=== PATIENT | male | born 1980 | race Caucasian/White ===

== ENCOUNTER 2019-09-21 08:10 | Outpatient (CLI) | payer BC, SELFPAY ==
[2019-09-21 08:25] LABS: Basophils Absolute Auto 0.02 K/mm3 (0.00-0.10); Basophils Percent Auto 0.4 % (0.0-1.0); Eosinophils Absolute Auto 0.14 K/mm3 (0.02-0.50); Eosinophils Percent Auto 2.5 % (1.0-6.0); Hematocrit 47.8 % (40.0-54.0); Hemoglobin 16.4 g/dL (14.0-18.0); Immature Granulocyte Absolute 0.02 K/mm3 (0.00-0.00); Immature Granulocyte Percent A 0.4 % (0.0-0.0); Lymphocytes Absolute Auto 1.31 K/mm3 (1.10-4.50); Lymphocytes Percent Auto 23.8 % (18.0-42.0); Mean Corpuscular HGB Conc 34.3 g/dL (32.0-36.0); Mean Corpuscular Hemoglobin 30.8 pg (27.0-31.0); Mean Corpuscular Volume 89.7 fL (78.0-102.0); Mean Platelet Volume 8.8 fl (8.7-11.0); Monocytes Absolute Auto 0.63 K/mm3 (0.10-0.90); Monocytes Percent Auto 11.5 % (2.0-11.0); Neutrophils Absolute Auto 3.4 K/mm3 (1.7-7.2); Neutrophils Percent Auto 61.4 % (50.0-70.0); Platelet Count Result 226 K/mm3 (150-420); Red Blood Count 5.33 M/mm3 (4.70-6.10); Red Cell Distribution Width 12.2 % (11.6-14.4); White Blood Count 5.5 K/mm3 (4.8-10.8)
[2019-09-21 08:36] LABS: Add Urine Microscopic? NO; Appearance Urine Clear (Clear); Bilirubin Urine Negative (Negative); Blood Urine Negative (Negative); Color Urine Yellow (Yellow); Glucose Urine UA Negative (Negative); Ketones Urine Negative (Negative); Leukocyte Esterase Ur Negative LEU/UL (Negative); Nitrate Urine Negative (Negative); Protein Urine Negative (Negative); Specific Grav Ur 1.015 (1.010-1.020); Urobilinogen Urine 0.2 mg/dL (0.2-1.0)
[2019-09-21 08:47] LABS: Creatinine Urine 112.39 mg/dL (40-278); MALB Creatinine Ratio 2.7 mg/g (0-30); Microalbumin Urine Random 3.1 mg/L
[2019-09-21 08:54] LABS: Hemoglobin A1C 5.4 % (<5.7)
[2019-09-21 10:14] LABS: Alanine Aminotransferase 39 U/L (16-63); Albumin Level 3.6 g/dL (3.4-5.0); Alkaline Phosphatase 48 U/L (46-116); Anion Gap 12.3 mmol/L (7-16); Aspartate Amino Transferase 32 U/L (15-37); Bilirubin,Total 1.3 mg/dL (0.00-1.00); Blood Urea Nitrogen 13 mg/dL (7-18); Calcium 8.7 mg/dL (8.5-10.1); Carbon Dioxide 29 mmol/L (21-32); Chloride 100 mmol/L (98-108); Cholesterol 203 mg/dL (0-200); Creatine Kinase 95 U/L (39-308); Estimated Glomerular Filt Rate 58; Free T4 Free Thyroxine 0.93 ng/dL (0.76-1.46); Glucose 95 mg/dL (70-99); HDL Direct 59 mg/dL (40-60); LDL Cholesterol Calculated 97 mg/dL (<130); Osmolality Calculated 284 mOsm/kg (285-295); Potassium 4.3 mmol/L (3.5-5.1); Sodium 137 mmol/L (136-145); Thyroid Stimulating Hormone 2.79 uIU/mL (0.36-3.74); Total Protein 6.8 g/dL (6.4-8.2); Triglycerides 236 mg/dL (0-150)
== END 2019-09-21 08:11 | disposition home or self-care (01) ==
PROVIDERS: PCP Internal Medicine; Visit Provider Internal Medicine
DX: Z00.00 Encounter for general adult medical examination without abnormal findings (principal); R73.01 Impaired fasting glucose; N39.0 Urinary tract infection, site not specified
CPT/HCPCS: 36415; 80053; 80061; 81003; 82043; 82550; 83036; 84439; 84443; 85025

== ENCOUNTER 2019-10-08 15:11 | Outpatient (CLI) | payer BC, SELFPAY ==
[2019-10-08 15:32] LABS: Anion Gap 6 mmol/L (8-16); Blood Urea Nitrogen 13 mg/dL (7-18); Calcium 8.6 mg/dL (8.5-10.1); Carbon Dioxide 30 mmol/L (21-32); Chloride 104 mmol/L (98-108); Estimated Glomerular Filt Rate > 60; Glucose 78 mg/dL (70-99); Osmolality Calculated 289 mOsm/kg (285-295); Potassium 3.6 mmol/L (3.5-5.1); Sodium 140 mmol/L (136-145)
== END 2019-10-08 15:12 | disposition home or self-care (01) ==
LOC: CHSLAB 15:13
PROVIDERS: PCP Internal Medicine; Visit Provider Internal Medicine
DX: R79.89 Other specified abnormal findings of blood chemistry (principal)
CPT/HCPCS: 36415; 80048

== ENCOUNTER 2021-01-17 07:29 | Outpatient (CLI) | payer BC, SELFPAY ==
[2021-01-17 08:50] LABS: Cholesterol 241 mg/dL (0-200); HDL Direct 57 mg/dL (40-60); LDL Cholesterol Calculated 144 mg/dL (<130); Triglycerides 198 mg/dL (0-150)
== END 2021-01-17 07:30 | disposition home or self-care (01) ==
LOC: CHSLAB 07:31
PROVIDERS: PCP Internal Medicine; Visit Provider Internal Medicine
DX: E78.2 Mixed hyperlipidemia (principal)
CPT/HCPCS: 36415; 80061

== ENCOUNTER 2021-04-16 07:19 | Outpatient (CLI) | payer BC, SELFPAY ==
[2021-04-16 09:06] LABS: Alanine Aminotransferase 56 U/L (16-63); Albumin Level 3.8 g/dL (3.4-5.0); Alkaline Phosphatase 69 U/L (46-116); Anion Gap 11 mmol/L (8-16); Aspartate Amino Transferase 39 U/L (15-37); Blood Urea Nitrogen 9 mg/dL (7-18); Calcium 8.8 mg/dL (8.5-10.1); Carbon Dioxide 28 mmol/L (21-32); Chloride 98 mmol/L (98-108); Cholesterol 111 mg/dL (0-200); Creatine Kinase 170 U/L (39-308); Estimated Glomerular Filt Rate > 60; Glucose 90 mg/dL (70-99); HDL Direct 64 mg/dL (40-60); LDL Cholesterol Calculated 21 mg/dL (<130); Osmolality Calculated 282 mOsm/kg (285-295); Potassium 4.1 mmol/L (3.5-5.1); Sodium 137 mmol/L (136-145); Total Protein 6.8 g/dL (6.4-8.2); Triglycerides 131 mg/dL (0-150)
== END 2021-04-16 07:20 | disposition home or self-care (01) ==
LOC: CHSLAB 07:21
PROVIDERS: PCP Internal Medicine; Visit Provider Internal Medicine
DX: E78.2 Mixed hyperlipidemia (principal); I10 Essential (primary) hypertension
CPT/HCPCS: 36415; 80053; 80061; 82550

== ENCOUNTER 2021-06-01 07:26 | Outpatient (CLI) | payer BC, SELFPAY ==
[2021-06-01 08:15] LABS: Alanine Aminotransferase 48 U/L (16-63); Albumin Level 3.6 g/dL (3.4-5.0); Alkaline Phosphatase 57 U/L (46-116); Anion Gap 7 mmol/L (8-16); Aspartate Amino Transferase 33 U/L (15-37); Bilirubin,Total 0.7 mg/dL (0.00-1.00); Blood Urea Nitrogen 10 mg/dL (7-18); Calcium 8.9 mg/dL (8.5-10.1); Carbon Dioxide 27 mmol/L (21-32); Chloride 103 mmol/L (98-108); Cholesterol 144 mg/dL (0-200); Estimated Glomerular Filt Rate > 60; Glucose 97 mg/dL (70-99); HDL Direct 60 mg/dL (40-60); LDL Cholesterol Calculated 58 mg/dL (<130); Osmolality Calculated 283 mOsm/kg (285-295); Potassium 4.2 mmol/L (3.5-5.1); Sodium 137 mmol/L (136-145); Total Protein 6.5 g/dL (6.4-8.2); Triglycerides 132 mg/dL (0-150)
== END 2021-06-01 07:27 | disposition home or self-care (01) ==
PROVIDERS: PCP Internal Medicine; Visit Provider Internal Medicine
DX: E78.2 Mixed hyperlipidemia (principal)
CPT/HCPCS: 36415; 80053; 80061

== ENCOUNTER 2021-12-14 07:04 | Outpatient (CLI) | payer BC, SELFPAY ==
[2021-12-14 07:15] LABS: Appearance Urine Clear (Clear); Bilirubin Urine Negative (Negative); Blood Urine Negative (Negative); Glucose Urine UA Negative (Negative); Ketones Urine Negative (Negative); Leukocyte Esterase Ur Negative (Negative); Nitrate Urine Negative (Negative); Protein Urine Negative (Negative); Specific Grav Ur >= 1.030 (1.010-1.020); Urobilinogen Urine 0.2 mg/dL (0.2-1.0)
[2021-12-14 07:32] LABS: Add Urine Microscopic? NO; Color Urine Light Yellow (Yellow)
[2021-12-14 08:00] LABS: Alanine Aminotransferase 63 U/L (16-63); Albumin Level 3.6 g/dL (3.4-5.0); Alkaline Phosphatase 55 U/L (46-116); Anion Gap 7 mmol/L (8-16); Aspartate Amino Transferase 41 U/L (15-37); Bilirubin,Total 0.5 mg/dL (0.00-1.00); Blood Urea Nitrogen 11 mg/dL (7-18); Calcium 8.8 mg/dL (8.5-10.1); Carbon Dioxide 28 mmol/L (21-32); Chloride 102 mmol/L (98-108); Cholesterol 170 mg/dL (0-200); Creatine Kinase 123 U/L (39-308); Estimated Glomerular Filt Rate > 60; Glucose 99 mg/dL (70-99); HDL Direct 61 mg/dL (40-60); LDL Cholesterol Calculated 83 mg/dL (<130); Osmolality Calculated 283 mOsm/kg (285-295); Potassium 4.7 mmol/L (3.5-5.1); Sodium 137 mmol/L (136-145); Total Protein 6.6 g/dL (6.4-8.2); Triglycerides 131 mg/dL (0-150)
== END 2021-12-14 07:05 | disposition home or self-care (01) ==
LOC: CHSLAB 07:05
PROVIDERS: PCP Internal Medicine; Visit Provider Internal Medicine
DX: E78.2 Mixed hyperlipidemia (principal); I10 Essential (primary) hypertension
CPT/HCPCS: 36415; 80053; 80061; 81003; 82550

== ENCOUNTER 2022-06-21 07:11 | Outpatient (CLI) | payer BC, SELFPAY ==
[2022-06-21 07:37] LABS: Appearance Urine Clear (Clear); Bilirubin Urine Negative (Negative); Blood Urine Negative (Negative); Color Urine Light Yellow (Yellow); Glucose Urine UA Negative (Negative); Ketones Urine Negative (Negative); Leukocyte Esterase Ur Negative (Negative); Nitrate Urine Negative (Negative); Protein Urine Negative (Negative); Specific Grav Ur 1.025 (1.010-1.020); Urobilinogen Urine 0.2 mg/dL (0.2-1.0)
[2022-06-21 07:41] LABS: Add Urine Microscopic? NO
[2022-06-21 07:53] LABS: Hemoglobin A1C 4.9 % (<5.7)
[2022-06-21 07:57] LABS: Alanine Aminotransferase 49 U/L (16-63); Albumin Level 3.7 g/dL (3.4-5.0); Alkaline Phosphatase 54 U/L (46-116); Anion Gap 4 mmol/L (8-16); Aspartate Amino Transferase 43 U/L (15-37); Bilirubin,Total 0.4 mg/dL (0.00-1.00); Blood Urea Nitrogen 11 mg/dL (7-18); Carbon Dioxide 31 mmol/L (21-32); Chloride 100 mmol/L (98-108); Cholesterol 144 mg/dL (0-200); Creatine Kinase 105 U/L (39-308); Estimated Glomerular Filt Rate > 60; Glucose 114 mg/dL (70-99); HDL Direct 59 mg/dL (40-60); LDL Cholesterol Calculated 63 mg/dL (<130); Osmolality Calculated 280 mOsm/kg (285-295); Potassium 4.4 mmol/L (3.5-5.1); Sodium 135 mmol/L (136-145); Total Protein 6.8 g/dL (6.4-8.2); Triglycerides 108 mg/dL (0-150)
== END 2022-06-21 07:12 | disposition home or self-care (01) ==
LOC: CHSLAB 07:13
PROVIDERS: PCP Internal Medicine; Visit Provider Internal Medicine
DX: I10 Essential (primary) hypertension (principal); R73.01 Impaired fasting glucose; E78.2 Mixed hyperlipidemia
CPT/HCPCS: 36415; 80053; 80061; 81003; 82550; 83036

== ENCOUNTER 2022-10-21 07:05 | Outpatient (CLI) | payer OTHER, SELFPAY ==
[2022-10-21 08:16] LABS: Anion Gap 14 mmol/L (8-16); Blood Urea Nitrogen 17 mg/dL (7-18); Calcium 8.5 mg/dL (8.5-10.1); Carbon Dioxide 23 mmol/L (21-32); Chloride 104 mmol/L (98-108); Estimated Glomerular Filt Rate 57; Glucose 90 mg/dL (70-99); Osmolality Calculated 293 mOsm/kg (285-295); Potassium 4.1 mmol/L (3.5-5.1); Sodium 141 mmol/L (136-145)
== END 2022-10-21 07:06 | disposition home or self-care (01) ==
LOC: CHSLAB 07:09
PROVIDERS: PCP Internal Medicine; Visit Provider Internal Medicine
DX: R73.01 Impaired fasting glucose (principal)
CPT/HCPCS: 36415; 80048

== ENCOUNTER 2023-06-19 07:11 | Outpatient (CLI) | payer OTHER, SELFPAY ==
[2023-06-19 07:33] LABS: Appearance Urine Clear (Clear); Bilirubin Urine Negative (Negative); Blood Urine Negative (Negative); Color Urine Yellow (Yellow); Glucose Urine UA Negative (Negative); Ketones Urine Negative (Negative); Leukocyte Esterase Ur Negative LEU/UL (Negative); Nitrate Urine Negative (Negative); Protein Urine Negative (Negative); Specific Grav Ur 1.025 (1.010-1.020); Urobilinogen Urine 0.2 mg/dL (0.2-1.0)
[2023-06-19 07:35] LABS: Basophils Absolute Auto 0.03 K/mm3 (0.00-0.10); Basophils Percent Auto 0.4 % (0.0-1.0); Eosinophils Absolute Auto 0.09 K/mm3 (0.02-0.50); Eosinophils Percent Auto 1.2 % (1.0-6.0); Hemoglobin 15.8 g/dL (14.0-18.0); Immature Granulocyte Absolute 0.02 K/mm3 (0.00-0.00); Immature Granulocyte Percent A 0.3 % (0.0-0.0); Lymphocytes Absolute Auto 1.22 K/mm3 (1.10-4.50); Lymphocytes Percent Auto 15.8 % (18.0-42.0); Mean Corpuscular HGB Conc 32.9 g/dL (32-36); Mean Corpuscular Hemoglobin 29.4 pg (27.0-31.0); Mean Corpuscular Volume 89.4 fL (78.0-102.0); Mean Platelet Volume 8.6 fl (8.7-11.0); Monocytes Absolute Auto 0.95 K/mm3 (0.10-0.90); Monocytes Percent Auto 12.3 % (2.0-11.0); Neutrophils Absolute Auto 5.42 K/mm3 (1.70-7.20); Platelet Count Result 253 K/mm3 (150-420); Red Blood Count 5.37 M/mm3 (4.70-6.10); Red Cell Distribution Width 13.2 % (11.6-14.4); White Blood Count 7.7 K/mm3 (4.8-10.8)
[2023-06-19 07:46] LABS: Add Urine Microscopic? NO
[2023-06-19 08:04] LABS: Hemoglobin A1C 5.3 % (<5.7)
[2023-06-19 08:06] LABS: Alanine Aminotransferase 58 U/L (16-63); Albumin Level 3.7 g/dL (3.4-5.0); Alkaline Phosphatase 60 U/L (46-116); Anion Gap 9 mmol/L (4-12); Aspartate Amino Transferase 38 U/L (15-37); Blood Urea Nitrogen 15 mg/dL (7-18); Calcium 8.8 mg/dL (8.5-10.1); Carbon Dioxide 29 mmol/L (21-32); Chloride 101 mmol/L (98-108); Cholesterol 152 mg/dL (0-200); Creatine Kinase 160 U/L (39-308); Estimated Glomerular Filt Rate 56; Glucose 102 mg/dL (70-99); HDL Direct 62 mg/dL (40-60); LDL Cholesterol Calculated 61 mg/dL (<130); Osmolality Calculated 288 mOsm/kg (285-295); Potassium 4.5 mmol/L (3.5-5.1); Sodium 139 mmol/L (136-145); Total Protein 6.8 g/dL (6.4-8.2); Triglycerides 145 mg/dL (0-150)
== END 2023-06-19 07:12 | disposition home or self-care (01) ==
LOC: CHSLAB 07:14
PROVIDERS: PCP Internal Medicine; Visit Provider Internal Medicine
DX: N39.0 Urinary tract infection, site not specified (principal); I10 Essential (primary) hypertension; R73.01 Impaired fasting glucose; E78.2 Mixed hyperlipidemia
CPT/HCPCS: 36415; 80053; 80061; 81003; 82550; 83036; 85025

== ENCOUNTER 2023-08-12 17:19 | Emergency (ER) | payer OTHER, SELFPAY ==
[2023-08-12 17:21] VITALS: BP 140/107; PULSE 103; RESP 18; TEMP 36.3; O2SAT 97
--- NOTE | 2023-08-12 17:45 | ED.GENADULT ---
HPI - General Adult General Chief complaint: Wound/Laceration Stated complaint: cut finger on left hand Time Seen by Provider: 08/12/23 17:29 History of Present Illness HPI narrative: The patient is a 43-year-old male who sustained a laceration to the left ring finger while working on a machete as he was putting it back in its sheath , just prior to arrival. Last tetanus unknown but likely within 10 years (in the EMR, it was 2014). No motor or sensory deficit of the left ring finger. No other injuries elsewhere. No other complaints. Related Data Home Medications Medication Instructions Recorded Confirmed atorvastatin 20 mg tablet 20 mg PO DAILY 08/12/23 08/12/23 lisinopril 30 mg tablet 30 mg PO DAILY 08/12/23 08/12/23 Allergies Allergy/AdvReac Type Severity Reaction Status Date / Time No Known Allergies Allergy Verified 08/12/23 17:25 Review of Systems Review of Systems: All systems reviewed & are unremarkable except as noted in HPI and below Constitutional: Constitutional: Denies chills, Denies excessive sweating, Denies fatigue, Denies fever(s), Denies headache(s) and Denies weakness Eyes: Eyes: Denies change in vision and Denies photophobia ENT: Denies dysphagia, Denies dizziness, Denies headache(s), Denies lip swelling, Denies nasal congestion, Denies sore throat and Denies tongue swelling Cardiovascular: Cardiovascular: Denies chest pain, Denies syncope, Denies rapid heart rate and Denies dyspnea Respiratory: Respiratory: Denies cough, Denies dyspnea and Denies wheezing Gastrointestinal: Gastrointestinal: Denies abdominal pain, Denies constipation, Denies dysphagia, Denies diarrhea, Denies nausea and Denies vomiting Genitourinary: Genitourinary: Denies hematuria, Denies dysuria, Denies urinary frequency and Denies urinary urgency Musculoskeletal: Musculoskeletal: Denies back pain, Denies myalgias, Denies arthralgias, Denies joint swelling and Denies numbness Integumentary/Breasts: Skin/Breast: Denies pruritus, Denies erythema and Denies rash Neurologic: Denies confusion, Denies dizziness, Denies syncope, Denies headache(s), Denies focal weakness, Denies numbness and Denies weakness Psychiatric: Psychiatric: Denies anxiety and Denies confusion Endocrine: Endocrine: Denies excessive sweating and Denies fatigue Hematologic/Lymphatic: Hematologic/Lymphatic: Denies easy bleeding and Denies easy bruising Allergic/Immunologic: Allergic/Immunologic: Denies lip swelling, Denies tongue swelling and Denies wheezing Exam Const: General: healthy appearing, no acute distress, alert and well nourished Nutritional Appearance: well nourished Orientation/consciousness: patient oriented x3 Limitations: no limitations HENMT: Head: normal to inspection Ears: external ears normal Face/Nose/Sinus: normal facial exam Face and sinus: normal facial exam Mouth: Yes moist mucous membranes Throat: posterior oropharynx normal Eyes: Conjunctivae: conjunctivae normal Pupils: Equal, round and reactive pupils present EOM: EOMs intact bilaterally Neck: Neck: normal visual inspection and no meningeal signs Chest: Chest palpation & inspection: normal inspection of the chest and no tenderness Resp: Effort & Inspection: normal respiratory effort and not labored Auscultation: clear to auscultation bilaterally, no crackles, no rhonchi and no wheezes Cardio: Rate: regular rate Rhythm: regular rhythm Heart sounds: no murmurs GI: Inspection: non-distended GI Palp: Yes Soft to palpation, No Tenderness to palpation present (GI), No Guarding due to palpation present (GI) and No Rebound tenderness present : General: Yes no CVA tenderness Back/Spine/Pelvis: Back: no CVA tenderness Cervical Spine: No Cervical spine tenderness Thoracic/Lumbar Spine: No thoracic spinal tenderness Skin: General skin exam: normal color Rashes: no rashes Wounds: wounds noted ( 8mm horizontal lac at palmar left ring finger: just distal to PIP joint)
[2023-08-12] MEDS: TETANUS,DIPHTHERIA,AC PERTUSSIS ADULT 0.5 ML (ADACEL) IM (17:58)
[2023-08-12 18:21] VITALS: BP 136/99; PULSE 93; RESP 20; TEMP 36.6; O2SAT 95
[2023-08-12 18:22] VITALS: BP 136/99; PULSE 93; RESP 20; TEMP 36.6; O2SAT 95
== END 2023-08-12 18:22 | disposition home or self-care (01) ==
PROVIDERS: Emergency Provider Emergency Medicine; PCP Internal Medicine
DX: S61.215A Laceration without foreign body of left ring finger without damage to nail, initial encounter (principal); Z23 Encounter for immunization; W27.8XXA Contact with other nonpowered hand tool, initial encounter
CPT/HCPCS: 12001; 90471; 90715; 99282

== ENCOUNTER 2024-03-26 12:08 | Outpatient (CLI) | payer OTHER, SELFPAY ==
--- OUTSIDE RECORDS SUMMARY | 2024-03-26 12:12 | XMS_ITS | Clinical Summary ---
Author Organization [facility] Address [address] [place] [address] Phone Care Team Providers Care Mechanical Planner Name Role Phone Nico Purdy MD Primary Care Provider [phone] Allergies No known active allergies Medications lisinopril (PRINIVIL, ZESTRIL) 20 MG Tablet Take 20 mg by mouth daily. Active Family History Medical History Relation Name Comments Heart Attack Father Hypertension Mother Thyroid Disease Mother Relation Name Status Comments Father Alive Mother Alive Social History Tobacco Use Types Packs/Day Years Used Date Smoking Tobacco: Former Cigars Q uit: 07/18/2015 Comments:Occasional Alcohol Use Standard Drinks/Week Comments Yes 6 (1 standard drink = 0.6 oz pur e alcohol) OCCASIONALLY Sex and Gender Information Value Date Recorded Sex Assigned at Not on file Legal Sex Male 9:02 AM CDT Gender Identity Not on file Sexual Orientation Not on file Last Filed Vital Signs Vital Sign Reading Time Taken Comments Blood Pressure 120/89 07/18/2015 6:25 AM CDT Pulse 98 05/18/2015 9:07 AM CDT Temperature 36 ??C (96.8 ??F) 07/18/2015 6:25 AM CDT Respiratory Rate 14 07/18/2015 6:25 AM CDT Oxygen Saturation 100% 07/18/2015 6:25 AM CDT Inhaled Oxygen Concentration - - Weight 86.2 kg (190 lb) 07/18/2015 5:19 AM CDT Height 182.9 cm (6') 07/18/2015 5:19 AM CDT Body Mass Index 25.77 07/18/2015 5:19 AM CDT Plan of Treatment Health Maintenance Due Date Last Done Comments Hepatitis C Virus (HCV) Screening 1978 TdaP Immunization 1978 Hepatitis B Immunization (1 of 3 - 19+ 3-dose series) 1997 Influenza Immunization (#1) 2023 SARS-COV-2 Immunization (1 - 2023- season) 2023 Colonoscopy 07/17/2025 07/18/2015 Colorectal Cancer Screening 07/17/2025 Respiratory Syncytial Virus (RSV) Immunization (Adult) (1 - 1-dose 75+ series) 2053 07/18/2015 Meningococcal Immunization (ACWY) Aged Out No longer eligible based on patient's age to complete this topic Pneumococcal Immunization Combined Aged Out No longer eligible based on patient's age to complete this topic Rotavirus Immunization Aged Out No lo nger eligible based on patient's age to complete this topic Care Teams Mechanical Planner Relationship Specialty Start Date End Date Nico Purdy MD [address] [place] [address] PCP - General Family Medicine 05/18/15
--- OUTSIDE RECORDS SUMMARY | 2024-03-26 12:12 | XMS_ITS | Clinical Summary ---
Author Organization [facility] Address [address] [place] [address]. 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 Gender Identity Not on file Sexual Orientation Not on file Plan of Treatment Health Maintenance Due Date Last Done Comments Colorectal Cancer Screening Colonoscopy (10 Years) 1978 Annual Physical 1981 Hepatitis C 1996 DTaP, Tdap and Td Vaccines ( 1 - Tdap) 1997 Hepatitis B Vaccines (1 of 3 - 19+ 3-dose series) 1997 COVID-19 Vaccine (2023-2 5 season) 2023 Influenza Adult (#1) 2023 HPV Vaccines Aged Out No longer eligi ble based on patient's age to complete this topic Meningococcal B Vaccine Aged Out No l onger eligible based on patient's age to complete this topic Meningococcal Vaccine Aged Out No giselle carlos eligible based on patient's age to complete this topic Pneumococcal Vaccine: Pediat rics (0 to 5 Years) and At-Risk Patients (6 to 64 Years) Aged Out No longer eligible b ased on patient's age to complete this topic RSV Immunizations Under 20 Months Aged Out No longer eligible based on patient's age to complete this topic
[2024-03-26 13:10] LABS: Alanine Aminotransferase 43 U/L (16-63); Albumin Level 3.5 g/dL (3.4-5.0); Alkaline Phosphatase 74 U/L (46-116); Anion Gap 7 mmol/L (4-12); Aspartate Amino Transferase 29 U/L (15-37); Bilirubin,Total 0.5 mg/dL (0.00-1.00); Blood Urea Nitrogen 15 mg/dL (7-18); Calcium 8.4 mg/dL (8.5-10.1); Carbon Dioxide 28 mmol/L (21-32); Chloride 99 mmol/L (98-108); Estimated Glomerular Filt Rate 52; Glucose 90 mg/dL (70-99); Osmolality Calculated 278 mOsm/kg (285-295); Potassium 3.9 mmol/L (3.5-5.1); Sodium 134 mmol/L (136-145); Total Protein 6.2 g/dL (6.4-8.2)
[2024-03-26 13:23] LABS: SARS-CoV-2 RNA PCR Negative (Negative)
[2024-03-26 13:26] LABS: Influenza A QL RT-PCR Positive (Negative); Influenza B QL RT-PCR Negative (Negative)
== END 2024-03-26 12:09 | disposition home or self-care (01) ==
PROVIDERS: PCP Internal Medicine; Visit Provider Internal Medicine
DX: R79.1 Abnormal coagulation profile (principal); J06.9 Acute upper respiratory infection, unspecified
CPT/HCPCS: 36415; 80053; 87636

== ENCOUNTER 2024-04-09 07:02 | Outpatient (CLI) | payer OTHER, SELFPAY ==
--- NOTE | ~2024-04-09 | US_ITS ---
EXAMINATION: US renal BI DATE: 04/09/2024 07:37 INDICATION: Abnormal kidney function tests. TECHNIQUE: Multiple ultrasound grayscale images of the kidneys were obtained. COMPARISON: None. FINDINGS: The right kidney measures 11.4 x 4.6 x 4.5 cm. The left kidney measures 11.0 x 4.4 x 6.3 cm. The kidn eys demonstrate normal parenchymal echogenicity. There is no hydronephrosis. The bladder is normal. IMPRESSION: 1. Normal kidneys. No hydronephrosis. Reviewed, dictated and finalized at location A. SHELLER OPERATOR
--- OUTSIDE RECORDS SUMMARY | 2024-04-09 07:06 | XMS_ITS | Clinical Summary ---
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
--- OUTSIDE RECORDS SUMMARY | 2024-04-09 07:06 | XMS_ITS | Clinical Summary ---
Author Organization [facility] Address [address] [place] [address] Phone Care Team Providers Care Cafe Aide Name Role Phone Nico Purdy MD Primary Care Provider [phone] Allergies No known active allergies Medications lisinopril [...] 98 05/18/2015 9:07 AM CDT Temperature 36 C (96.8 F) 07/18/2015 6:25 AM CDT Respiratory Rate 14 [...] 1997 Influenza Immunization (#1) 2023 SARS-COV-2 Immunization ( - 2023- season) 2023 Colonoscopy 07/17/2025 07/18/2015 [...] age to complete this topic Care Teams Cafe Aide Relationship Specialty Start Date End Date Nico Purdy MD [address] [place] [address] PCP - General Family Medicine 05/18/15
[2024-04-09 07:31] LABS: Collection Time Urine 24 HOURS
[2024-04-09 07:39] LABS: Hematocrit 44.8 % (40.0-54.0); Hemoglobin 14.4 g/dL (14.0-18.0); Mean Corpuscular HGB Conc 32.1 g/dL (32-36); Mean Corpuscular Hemoglobin 28.2 pg (27.0-31.0); Mean Corpuscular Volume 87.7 fL (78.0-102.0); Mean Platelet Volume 9.1 fl (8.7-11.0); Platelet Count Result 255 K/mm3 (150-420); Red Blood Count 5.11 M/mm3 (4.70-6.10); Red Cell Distribution Width 13.2 % (11.6-14.4); White Blood Count 7.1 K/mm3 (4.8-10.8)
[2024-04-09 07:51] LABS: Add Urine Microscopic? NO; Appearance Urine Clear (Clear); Bilirubin Urine Negative (Negative); Blood Urine Negative (Negative); Color Urine Light Yellow (Yellow); Glucose Urine UA Negative (Negative); Ketones Urine Negative (Negative); Leukocyte Esterase Ur Negative (Negative); Nitrate Urine Negative (Negative); Protein Urine Negative (Negative); Specific Grav Ur <= 1.005 (1.010-1.020); Urobilinogen Urine 0.2 mg/dL (0.2-1.0)
[2024-04-09 07:56] LABS: Creatinine Urine 64.47 mg/dL (40-278); Patient Weight 200 Lbs
[2024-04-09 08:02] LABS: Alanine Aminotransferase 51 U/L (16-63); Albumin Level 3.6 g/dL (3.4-5.0); Alkaline Phosphatase 72 U/L (46-116); Anion Gap 10 mmol/L (4-12); Aspartate Amino Transferase 22 U/L (15-37); Bilirubin,Total 0.9 mg/dL (0.00-1.00); Blood Urea Nitrogen 10 mg/dL (7-18); CRP 2.1 mg/dL (0.0-0.9); Calcium 8.7 mg/dL (8.5-10.1); Carbon Dioxide 28 mmol/L (21-32); Chloride 100 mmol/L (98-108); Cholesterol 159 mg/dL (0-200); Creatine Kinase 162 U/L (39-308); Estimated Glomerular Filt Rate 57; Glucose 98 mg/dL (70-99); HDL Direct 48 mg/dL (40-60); LDL Cholesterol Calculated 90 mg/dL (<130); Osmolality Calculated 285 mOsm/kg (285-295); Potassium 4.4 mmol/L (3.5-5.1); Sodium 138 mmol/L (136-145); Total Protein 6.7 g/dL (6.4-8.2); Triglycerides 106 mg/dL (0-150)
[2024-04-09 08:03] LABS: Creatinine Clearance Urine 81.1 ml/min (97-137); Serum Creat 1.35; Total Volume 24 Hour Urine 3000 ml
[2024-04-10 09:09] LABS: Complement C3 174 mg/dL (82-185)
[2024-04-11 03:33] LABS: Protein, Total 6.5 g/dL (6.1-8.1)
[2024-04-11 05:59] LABS: Creatinine, Random Urine 49 mg/dL (20-320); Total Prot/Creat ratio mg/mg NOTE (0.025-0.148); Total Protein/Creatinine Ratio NOTE mg/g creat (25-148)
[2024-04-12 11:24] LABS: Kappa\\Lambda Light Chains 1.23 (0.26-1.65); Lambda Light Chain 15.4 mg/L (5.7-26.3)
[2024-04-12 19:59] LABS: Albumin 3.9 g/dL (3.8-4.8); Alpha 1 Globulin 0.3 g/dL (0.2-0.3); Alpha 2 Globulin 0.7 g/dL (0.5-0.9); Beta 1 Globulin 0.5 g/dL (0.4-0.6); Gamma Globulin 0.7 g/dL (0.8-1.7)
[2024-04-13 10:44] LABS: Anti Nuclear Antibody Pattern Nuclear, Homogeneous; Anti Nuclear Antibody Titer 1:40 titer
[2024-04-13 14:28] LABS: Complement Total CH50 52 U/mL (31-60)
[2024-04-13 21:58] LABS: Immunofixation, Serum Normal pattern.
== END 2024-04-09 07:03 | disposition home or self-care (01) ==
PROVIDERS: PCP Internal Medicine; Visit Provider Internal Medicine
DX: N18.2 Chronic kidney disease, stage 2 (mild) (principal); E78.2 Mixed hyperlipidemia; I10 Essential (primary) hypertension
CPT/HCPCS: 36415; 76775; 80053; 80061; 81003; 82550; 82570; 82575; 83883; 84155; 84156; 84165; 84166; 85027; 86038; 86039; 86140; 86160; 86162; 86334

== ENCOUNTER 2024-04-20 15:41 | Outpatient (CLI) | payer OTHER, SELFPAY ==
[2024-04-20 15:55] LABS: Basophils Absolute Auto 0.03 K/mm3 (0.00-0.10); Basophils Percent Auto 0.4 % (0.0-1.0); Eosinophils Absolute Auto 0.19 K/mm3 (0.02-0.50); Eosinophils Percent Auto 2.4 % (1.0-6.0); Hematocrit 42.3 % (40.0-54.0); Hemoglobin 13.5 g/dL (14.0-18.0); Immature Granulocyte Absolute 0.03 K/mm3 (0.00-0.00); Immature Granulocyte Percent A 0.4 % (0.0-0.0); Lymphocytes Absolute Auto 1.62 K/mm3 (1.10-4.50); Lymphocytes Percent Auto 20.8 % (18.0-42.0); Mean Corpuscular HGB Conc 31.9 g/dL (32-36); Mean Corpuscular Hemoglobin 28.1 pg (27.0-31.0); Mean Corpuscular Volume 87.9 fL (78.0-102.0); Mean Platelet Volume 8.4 fl (8.7-11.0); Monocytes Absolute Auto 0.78 K/mm3 (0.10-0.90); Neutrophils Absolute Auto 5.15 K/mm3 (1.70-7.20); Platelet Count Result 258 K/mm3 (150-420); Red Blood Count 4.81 M/mm3 (4.70-6.10); Red Cell Distribution Width 13.2 % (11.6-14.4); White Blood Count 7.8 K/mm3 (4.8-10.8)
[2024-04-20 16:21] LABS: CRP 1.5 mg/dL (0.0-0.9); Uric Acid 7.1 mg/dL (3.5-7.2)
[2024-04-20 17:08] LABS: Erythrocyte Sedimentation Rate 10 mm/hr (0-15)
--- OUTSIDE RECORDS SUMMARY | 2024-04-20 18:14 | XMS_ITS | Clinical Summary ---
Author Organization [facility] Address [address] [place] [address] Phone Care Team Providers Care Biomass Power Plant Manager Name Role Phone Nico Purdy MD Primary Care Provider [phone] Allergies No known active allergies Medications lisinopril [...] age to complete this topic Care Teams Biomass Power Plant Manager Relationship Specialty Start Date End Date Nico Purdy MD [address] [place] [address] PCP - General Family Medicine 05/18/15
--- OUTSIDE RECORDS SUMMARY | 2024-04-20 18:14 | XMS_ITS | Clinical Summary ---
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
== END 2024-04-20 15:42 | disposition home or self-care (01) ==
PROVIDERS: PCP Internal Medicine; Visit Provider Internal Medicine
DX: N18.2 Chronic kidney disease, stage 2 (mild) (principal); M79.672 Pain in left foot
CPT/HCPCS: 36415; 84550; 85025; 85652; 86140; 86225

== ENCOUNTER 2024-06-02 18:38 | Outpatient (CLI) | payer OTHER, SELFPAY ==
--- OUTSIDE RECORDS SUMMARY | 2024-06-02 18:41 | XMS_ITS | Clinical Summary ---
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
--- OUTSIDE RECORDS SUMMARY | 2024-06-02 18:41 | XMS_ITS | Clinical Summary ---
Author Organization [facility] Address [address] [place] [address] Phone Care Team Providers Care Private Chef Name Role Phone Nico Purdy MD Primary Care Provider [phone] Allergies No known active allergies Medications lisinopril [...] age to complete this topic Care Teams Private Chef Relationship Specialty Start Date End Date Nico Purdy MD [address] [place] [address] PCP - General Family Medicine 05/18/15
[2024-06-02 19:04] LABS: Anion Gap 6 mmol/L (4-12); Blood Urea Nitrogen 13 mg/dL (7-18); Calcium 8.5 mg/dL (8.5-10.1); Carbon Dioxide 30 mmol/L (21-32); Chloride 104 mmol/L (98-108); Estimated Glomerular Filt Rate > 60; Glucose 102 mg/dL (70-99); Osmolality Calculated 290 mOsm/kg (285-295); Potassium 4.2 mmol/L (3.5-5.1); Sodium 140 mmol/L (136-145)
== END 2024-06-02 18:39 | disposition home or self-care (01) ==
LOC: CHSLAB 18:40
PROVIDERS: PCP Internal Medicine; Visit Provider Internal Medicine
DX: E86.0 Dehydration (principal)
CPT/HCPCS: 36415; 80048

== ENCOUNTER 2024-11-19 07:01 | Outpatient (CLI) | payer OTHER, SELFPAY ==
[2024-11-19 07:14] LABS: Hematocrit 46.4 % (40.0-54.0); Hemoglobin 15.1 g/dL (14.0-18.0); Immature Granulocyte Percent A 0.7 % (0.0-0.0); Lymphocytes Absolute Auto 1.38 K/mm3 (1.10-4.50); Mean Corpuscular HGB Conc 32.5 g/dL (32-36); Mean Corpuscular Hemoglobin 28.8 pg (27.0-31.0); Mean Corpuscular Volume 88.4 fL (78.0-102.0); Nucleated Red Blood Cells Absolute Auto 0.00 K/mm3 (0.00-0.00); Nucleated Red Blood Cells Perc 0.0 % (0-0.0); Platelet Count Result 224 K/mm3 (150-420); Red Blood Count 5.25 M/mm3 (4.70-6.10); White Blood Count 6.9 K/mm3 (4.8-10.8)
[2024-11-19 07:17] LABS: Add Urine Microscopic? NO; Appearance Urine Clear (Clear); Glucose Urine UA Negative (Negative); Leukocyte Esterase Ur Negative LEU/UL (Negative); Nitrate Urine Negative (Negative); Specific Grav Ur 1.020 (1.010-1.020)
[2024-11-19 07:42] LABS: Hemoglobin A1C 5.8 % (<5.7)
[2024-11-19 07:56] LABS: Alanine Aminotransferase 45 U/L (6-50); Albumin Level 4.1 g/dL (3.5-5.1); Alkaline Phosphatase 57 U/L (38-126); Anion Gap 9 mmol/L (4-12); Aspartate Amino Transferase 38 U/L (17-59); Bilirubin,Total 0.5 mg/dL (0.2-1.3); Blood Urea Nitrogen 13 mg/dL (9-20); CRP 1.7 mg/dL (<1.0); Calcium 9.7 mg/dL (8.4-10.2); Carbon Dioxide 27 mmol/L (22-30); Chloride 102 mmol/L (98-107); Cholesterol 160 mg/dL (0-200); Creatine Kinase 146 U/L (55-170); Estimated Glomerular Filt Rate > 60; Glucose 111 mg/dL (65-110); HDL Direct 49 mg/dL; Osmolality Calculated 287 mOsm/kg (285-295); Potassium 4.7 mmol/L (3.4-5.0); Sodium 138 mmol/L (137-145); Total Protein 7.0 g/dL (6.3-8.2); Triglycerides 179 mg/dL (<150)
[2024-11-19 10:33] LABS: Uric Acid 7.9 mg/dL (3.5-8.5)
== END 2024-11-19 07:02 | disposition home or self-care (01) ==
LOC: CHSLAB 07:04
PROVIDERS: PCP Internal Medicine; Visit Provider Internal Medicine
DX: I10 Essential (primary) hypertension (principal); E78.2 Mixed hyperlipidemia; R73.01 Impaired fasting glucose; N39.0 Urinary tract infection, site not specified
CPT/HCPCS: 36415; 80053; 80061; 81003; 82550; 83036; 84550; 85025; 86140